=== PATIENT | female | born 1990 | race American Indian/Alaskan Native ===

== ENCOUNTER 2019-06-21 04:03 | Emergency (ER) | payer MEDICAID ==
[2019-06-21 05:37] LABS: Basophils # (Auto) 0.1 K/mm3 (0.0-0.1); Basophils % (Auto) 0.9 % (0.0-1.8); Eosinophils # (Auto) 0.1 K/mm3 (0.0-0.4); Eosinophils % (Auto) 0.7 % (0.0-4.3); Hemoglobin 12.1 gm/dl (10.1-14.3); Lymphocytes # (Auto) 2.6 K/mm3 (1.2-5.4); Lymphocytes % (Auto) 25.3 % (13.4-35.0); Mean Corpuscular HGB Conc 34 % (30-34); Mean Corpuscular Volume 84 fl (79-97); Monocytes # (Auto) 1.2 K/mm3 (0.0-0.8); Monocytes % (Auto) 11.5 % (0.0-7.3); Platelet Count 312 K/mm3 (140-440); Red Blood Count 4.27 M/mm3 (3.65-5.03); Red Cell Distribution Width 13.8 % (13.2-15.2)
[2019-06-21 05:58] LABS: BUN/Creatinine Ratio 7; Blood Urea Nitrogen 5 mg/dL (7-17); Calcium 9.3 mg/dL (8.4-10.2); Hemolysis Index 3
--- NOTE | 2019-06-21 06:50 | Emergency Department Report ---
HPI <GORDONSUZETTE - Last Filed: 06/24/19 21:53> - HPI HPI: 29-year-old -[place] female presents to the emergency department via [facility] after they were allegedly called out for this patient exhibiting some bizarre behavior. Patient appears to have a history of bipolar disorder and allegedly has been off of her Risperdal and lithium for about one year after being . The patient is not forthcoming regarding the events that occurred prior to arrival and the reasons why she was brought in by EMS. She admits that the person who called EMS is someone that she knows and it sounds like she may have come from home. Her main complaints to me at this time are that "I am cold" and "I am tired because I am not getting sleep." There is some triage information that also says that she has not slept the past 2-3 days and that she needs a break from her kids. I asked the patient if she has any auditory or visual hallucinations and she just responds with "tomb." <AMANDA HOANG S - Last Filed: 06/28/19 08:21> - General Chief Complaint: Psych Time Seen by Provider: 06/21/19 06:03 ED Past Medical Hx <SUZETTE GORDON - Last Filed: 06/24/19 21:53> - Past Medical History Previous Medical History?: Yes Hx Psychiatric Treatment: Yes (Bipolar) - Surgical History Past Surgical History?: No - Social History Smoking Status: Unknown if ever smoked Substance Use Type: None <AMANDA HOANG Ashish - Last Filed: 06/28/19 08:21> - Medications Home Medications: Home Medications Medication Instructions Recorded Confirmed Last Taken Type No Known Home Medications [No 06/21/19 06/21/19 Unknown History Reported Home Medications] ED Review of Systems ROS: Stated complaint: MH EVAL Other details as noted in HPI <SUZETTE GORDON - Last Filed: 06/24/19 21:53> ROS: Stated complaint: MH EVAL Other details as noted in HPI Comment: Unobtainable due to pts medical conditions <AMANDA HOANG Ashish - Last Filed: 06/28/19 08:21> Physical Exam - Physical Exam Vital Signs: Vital Signs 06/21/19 06/21/19 06/21/19 04:09 13:00 19:53 Temperature 97.7 F 98.1 F 98.0 F Pulse Rate 69 66 64 Respiratory 20 18 18 Rate Blood Pressure 120/85 122/88 110/65 [Right] O2 Sat by Pulse 100 97 100 Oximetry 06/22/19 06/22/19 06/22/19 02:29 08:32 16:50 Temperature 97.4 F L 97.8 F 97.5 F L Pulse Rate 56 L 68 68 Respiratory 16 18 18 Rate Blood Pressure 111/73 117/85 120/81 [Right] O2 Sat by Pulse 100 100 100 Oximetry 06/22/19 06/23/19 06/23/19 19:30 01:00 07:00 Temperature 97.3 F L 97.8 F 98.0 F Pulse Rate 71 51 L 74 Respiratory 18 18 18 Rate Blood Pressure 115/82 101/63 124/82 [Right] O2 Sat by Pulse 100 100 100 Oximetry 06/23/19 06/23/19 06/24/19 14:00 20:40 01:00 Temperature 98.7 F 97.2 F L 97.8 F Pulse Rate 64 78 86 Respiratory 18 18 16 Rate Blood Pressure 120/70 106/70 99/70 [Right] O2 Sat by Pulse 99 100 100 Oximetry 06/24/19 06/24/19 08:00 14:47 Temperature 97.3 F L 97.8 F Pulse Rate 89 74 Respiratory 18 20 Rate Blood Pressure 115/74 110/74 [Right] O2 Sat by Pulse 99 100 Oximetry <SUZETTE GORDON - Last Filed: 06/24/19 21:53> - Physical Exam Vital Signs: Vital Signs 06/21/19 04:09 Temperature 97.7 F Pulse Rate 69 Respiratory 20 Rate Blood Pressure 120/85 [Right] O2 Sat by Pulse 100 Oximetry Physical Exam: GENERAL: The patient is well-developed well-nourished. HENT: Normocephalic. Atraumatic. Patient has moist mucous membranes. EYES: Extraocular motions are intact. NECK: Supple. Trachea is midline. CHEST/LUNGS: Clear to auscultation. There is no respiratory distress noted. HEART/CARDIOVASCULAR: Regular. There is no tachycardia. There is no murmur. ABDOMEN: Abdomen is soft, nontender. Patient has normal bowel sounds. There is no abdominal distention. SKIN: Skin is warm and dry. NEURO: The patient is awake, alert, and oriented. The patient is cooperative. The patient has no focal neurologic deficits. Normal speech. MUSCULOSKELETAL: There is no tenderness or deformity. There is no evidence of acute injury. <AMANDA HOANG - Last Filed: 06/28/19 08:21> ED Course Vital Signs 06/21/19 06/21/19 06/21/19 04:09 13:00 19:53 Temperature 97.7 F 98.1 F 98.0 F Pulse Rate 69 66 64 Respiratory 20 18 18 Rate Blood Pressure 120/85 122/88 110/65 [Right] O2 Sat by Pulse 100 97 100 Oximetry 06/22/19 06/22/19 06/22/19 02:29 08:32 16:50 Temperature 97.4 F L 97.8 F 97.5 F L Pulse Rate 56 L 68 68 Respiratory 16 18 18 Rate Blood Pressure 111/73 117/85 120/81 [Right] O2 Sat by Pulse 100 100 100 Oximetry 06/22/19 06/23/19 06/23/19 19:30 01:00 07:00 Temperature 97.3 F L 97.8 F 98.0 F Pulse Rate 71 51 L 74 Respiratory 18 18 18 Rate Blood Pressure 115/82 101/63 124/82 [Right] O2 Sat by Pulse 100 100 100 Oximetry 06/23/19 06/23/19 06/24/19 14:00 20:40 01:00 Temperature 98.7 F 97.2 F L 97.8 F Pulse Rate 64 78 86 Respiratory 18 18 16 Rate Blood Pressure 120/70 106/70 99/70 [Right] O2 Sat by Pulse 99 100 100 Oximetry 06/24/19 06/24/19 08:00 14:47 Temperature 97.3 F L 97.8 F Pulse Rate 89 74 Respiratory 18 20 Rate Blood Pressure 115/74 110/74 [Right] O2 Sat by Pulse 99 100 Oximetry - Reevaluation(s) Reevaluation #1: 06/24/19 21:53 Patient has been accepted to [facility] at this time for continued mental health care <SUZETTE GORDON - Last Filed: 06/24/19 21:53> Vital Signs 06/21/19 04:09 Temperature 97.7 F Pulse Rate 69 Respiratory 20 Rate Blood Pressure 120/85 [Right] O2 Sat by Pulse 100 Oximetry <AMANDA HOANG - Last Filed: 06/28/19 08:21> ED Medical Decision Making - Lab Data Result diagrams: 06/21/19 05:22 06/21/19 05:22 <SUZETTE GORDON - Last Filed: 06/24/19 21:53> - Lab Data Result diagrams: 06/21/19 05:22 06/21/19 05:22 - Medical Decision Making This patient presents to the emergency department for a mental health evaluation. For me, she is not very forthcoming regarding the prehospital history or regarding her current state of mind. However, the patient was seen by the psych museum or zoo director, Shiva, and began telling him about her hallucinations and what appears to be paranoia and delusions. For this reason, the patient does appear to be having some acute psychosis and meets criteria to be made a 1013. The labs have been unremarkable. Vital signs stable throughout her ED course. Patient is medically cleared for psychiatric placement. - Differential Diagnosis bipolar disorder, schizophrenia, schizoaffective <AMANDA HOANG - Last Filed: 06/28/19 08:21> Critical care attestation.: If time is entered above; I have spent that time in minutes in the direct care of this critically ill patient, excluding procedure time. <SUZETTE GORDON - Last Filed: 06/24/19 21:53> Critical Care Time: No Critical care attestation.: If time is entered above; I have spent that time in minutes in the direct care of this critically ill patient, excluding procedure time. <AMANDA HOANG - Last Filed: 06/28/19 08:21> ED Disposition Is pt being admited?: No Does the pt Need Aspirin: No <SUZETTE GORDON - Last Filed: 06/24/19 21:53> Is pt being admited?: No Time of Disposition: 14:51 <AMANDA HOANG - Last Filed: 06/28/19 08:21> Clinical Impression: Acute psychosis, Paranoia, Delusions Disposition: DC/TX-[facility] PSY HOSP/PSY UNIT Condition: Stable Referrals: PRIMARY CARE, [Primary Care Provider] - 3-5 Days
[2019-06-21 11:44] LABS: Bacteria,Urine 1+ /HPF (Negative); Bilirubin,Urine NEG (Negative); Blood,Urine MOD (Negative); Color,Urine Amber (Yellow); Mucus,Urine 1+ /HPF
[2019-06-21 11:53] LABS: Amphetamine Screen,Urine PRESUMPTIVE NEGATIVE; Benzodiazepines Screen,Urine PRESUMPTIVE NEGATIVE; Cocaine Screen,Urine PRESUMPTIVE NEGATIVE; Methadone Screen,Urine PRESUMPTIVE NEGATIVE; Opiate Screen,Urine PRESUMPTIVE NEGATIVE
[2019-06-21 12:12] LABS: Cannabinoid Screen,Urine PRESUMPTIVE POSITIVE
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
[2019-06-21] MEDS: LITHIUM CARBONATE 300 MG CAP PO SCH ×2 (14:00→22:29)
[2019-06-21] MEDS: risperiDONE 1 MG TAB PO SCH (22:29)
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
[2019-06-22] MEDS: LITHIUM CARBONATE 300 MG CAP PO SCH ×2 (11:00→21:52)
[2019-06-22] MEDS: risperiDONE 1 MG TAB PO SCH (21:52)
[2019-06-23] MEDS: LITHIUM CARBONATE 300 MG CAP PO SCH ×2 (11:00→22:15)
--- NOTE | 2019-06-23 12:11 | Emergency Department Report ---
ED General Adult HPI - General Chief complaint: Psych Stated complaint: MH EVAL Time Seen by Provider: 06/23/19 12:04 Source: patient, EMS Mode of arrival: Stretcher Limitations: No Limitations - History of Present Illness Initial comments: "It's about Noman" - History of Present Psychiatric Illness 29 y.o. AA female who presented to the ER for bizarre behavior. Today Patient shows no significant changes. We tried to obtain collateral information from her mother Marli Desouza phone [phone], but were unable to make contact . Patient wanted us to make contact with her spiritual family Noman Tineo at [phone]. She wrote a letter requesting we discharge her because she was better now and taking her meds. She remains hyper zoroastrian She is yet to divulge her real name or significant details of existance. She denies SI/HI's and AVH's. She denies a poor appetite. She denies recreational drug use, but she was positive for marijuana. She denies alcohol consumption (etoh). At this time, the patient's legal name is unknown. Allergies Allergy/AdvReac Type Severity Reaction Status Date / Time No Known Allergies Allergy Unverified 06/21/19 04:09 - Past Medical History Past Medical History: other ( x 3) Past Surgical History: No surgical history - past Psychiatric treatment and history psychiatric treatment history: Hx of Bipolar DO. Denies a fam psy hx. - Social History Social history: lives with family - Vital signs Last Vital Signs Temp 97.7 F 06/21/19 04:09 Pulse 69 06/21/19 04:09 Resp 20 06/21/19 04:09 BP 120/85 06/21/19 04:09 Pulse Ox 100 06/21/19 04:09 - Exam Narrative exam: MSE: Appearance: bed sheet wrapped around the patient's head Behavior: regular eye contact Speech: regular rate and tone Mood: mild anxiety Affect: congruent to mood Thought Process: circumstantial Thought Content: denies SI/HI's and VH's, delusional, hyper zoroastrian Motor Activity: sitting up in bed Cognition: A/O x 3 Insight: variable Judgment: poor Results Result Diagrams: 06/21/19 05:22 06/21/19 05:22 Abnormal lab results 06/21/19 06/21/19 06/21/19 Range/Units 05:22 05:22 05:22 [place] % (Auto) (0.0-7.3) % [place] # (0.0-0.8) K/mm3 BUN 5 L (7-17) mg/dL Salicylates < 0.3 L (2.8-20.0) mg/dL Acetaminophen < 5.0 L (10.0-30.0) ug/mL 06/21/19 Range/Units 05:22 [place] % (Auto) 11.5 H (0.0-7.3) % [place] # 1.2 H (0.0-0.8) K/mm3 BUN (7-17) mg/dL Salicylates (2.8-20.0) mg/dL Acetaminophen (10.0-30.0) ug/mL All other labs normal. Assessment and plan: Impression: Bipolar DO with psychosis. Cannabis Use DO. The patient is manic. Today the patient was cooperative during the assessment. DDx: SCAD, Schizophrenia Recommendation/Plan: Continue 1013 and start Risperdal 1 mg PO HS for psychosis/mood and [place] 300 mg PO BID for mood. improving Dispo: The patient was referred to inpatient psy services Staffed with Dr Ashish Webb. Severity scale (0 -10): 0 - Related Data Home Medications Medication Instructions Recorded Confirmed Last Taken No Known Home Medications [No 06/21/19 06/21/19 Unknown Reported Home Medications] Allergies Allergy/AdvReac Type Severity Reaction Status Date / Time No Known Allergies Allergy Unverified 06/21/19 04:09 ED Review of Systems ROS: Stated complaint: MH EVAL Other details as noted in HPI Comment: All other systems reviewed and negative ED Past Medical Hx - Past Medical History Previous Medical History?: Yes Hx Psychiatric Treatment: Yes (Bipolar) - Surgical History Past Surgical History?: No - Social History Smoking Status: Unknown if ever smoked Substance Use Type: None - Medications Home Medications: Home Medications Medication Instructions Recorded Confirmed Last Taken Type No Known Home Medications [No 06/21/19 06/21/19 Unknown History Reported Home Medications] ED Physical Exam - General Limitations: No Limitations General appearance: alert, in no apparent distress - Head Head exam: Present: atraumatic, normocephalic - Eye Eye exam: Present: normal appearance - Neck Neck exam: Present: normal inspection - Rectal Rectal exam: Present: deferred - Neurological Exam Neurological exam: Present: alert - Skin Skin exam: Present: warm, dry ED Course Vital Signs 06/21/19 06/21/19 06/21/19 04:09 13:00 19:53 Temperature 97.7 F 98.1 F 98.0 F Pulse Rate 69 66 64 Respiratory 20 18 18 Rate Blood Pressure 120/85 122/88 110/65 [Right] O2 Sat by Pulse 100 97 100 Oximetry 06/22/19 06/22/19 06/22/19 02:29 08:32 16:50 Temperature 97.4 F L 97.8 F 97.5 F L Pulse Rate 56 L 68 68 Respiratory 16 18 18 Rate Blood Pressure 111/73 117/85 120/81 [Right] O2 Sat by Pulse 100 100 100 Oximetry 06/22/19 06/23/19 06/23/19 19:30 01:00 07:00 Temperature 97.3 F L 97.8 F 98.0 F Pulse Rate 71 51 L 74 Respiratory 18 18 18 Rate Blood Pressure 115/82 101/63 124/82 [Right] O2 Sat by Pulse 100 100 100 Oximetry ED Medical Decision Making - Lab Data Result diagrams: 06/21/19 05:22 06/21/19 05:22 Critical Care Time: No (mental health evaluation) Critical care attestation.: If time is entered above; I have spent that time in minutes in the direct care of this critically ill patient, excluding procedure time. ED Disposition Clinical Impression: Acute psychosis, Paranoia, Delusions Condition: Stable Referrals: PRIMARY CARE, [Primary Care Provider] - 3-5 Days Severity scale (0 -10): 0 - Related Data Home Medications Medication Instructions Recorded Confirmed Last Taken No Known Home Medications [No 06/21/19 06/21/19 Unknown Reported Home Medications] Allergies Allergy/AdvReac Type Severity Reaction Status Date / Time No Known Allergies Allergy Unverified 06/21/19 04:09 ED Review of Systems ROS: Stated complaint: MH EVAL Other details as noted in HPI ED Past Medical Hx - Past Medical History Previous Medical History?: Yes Hx Psychiatric Treatment: Yes (Bipolar) - Surgical History Past Surgical History?: No - Social History Smoking Status: Unknown if ever smoked Substance Use Type: None - Medications Home Medications: Home Medications Medication Instructions Recorded Confirmed Last Taken Type No Known Home Medications [No 06/21/19 06/21/19 Unknown History Reported Home Medications] ED Physical Exam - General Limitations: No Limitations General appearance: alert, in no apparent distress ED Course Vital Signs 06/21/19 06/21/19 06/21/19 04:09 13:00 19:53 Temperature 97.7 F 98.1 F 98.0 F Pulse Rate 69 66 64 Respiratory 20 18 18 Rate Blood Pressure 120/85 122/88 110/65 [Right] O2 Sat by Pulse 100 97 100 Oximetry 06/22/19 06/22/19 06/22/19 02:29 08:32 16:50 Temperature 97.4 F L 97.8 F 97.5 F L Pulse Rate 56 L 68 68 Respiratory 16 18 18 Rate Blood Pressure 111/73 117/85 120/81 [Right] O2 Sat by Pulse 100 100 100 Oximetry 06/22/19 06/23/19 06/23/19 19:30 01:00 07:00 Temperature 97.3 F L 97.8 F 98.0 F Pulse Rate 71 51 L 74 Respiratory 18 18 18 Rate Blood Pressure 115/82 101/63 124/82 [Right] O2 Sat by Pulse 100 100 100 Oximetry 06/23/19 06/23/19 06/24/19 14:00 20:40 01:00 Temperature 98.7 F 97.2 F L 97.8 F Pulse Rate 64 78 86 Respiratory 18 18 16 Rate Blood Pressure 120/70 106/70 99/70 [Right] O2 Sat by Pulse 99 100 100 Oximetry 06/24/19 06/24/19 06/24/19 08:00 14:47 22:40 Temperature 97.3 F L 97.8 F 98.3 F Pulse Rate 89 74 83 Respiratory 18 20 18 Rate Blood Pressure 115/74 110/74 120/75 [Right] O2 Sat by Pulse 99 100 99 Oximetry 06/25/19 06/25/19 00:00 07:00 Temperature 97.9 F 97.5 F L Pulse Rate 64 78 Respiratory 18 16 Rate Blood Pressure 101/64 104/76 [Right] O2 Sat by Pulse 100 99 Oximetry ED Medical Decision Making - Lab Data Result diagrams: 06/21/19 05:22 06/21/19 05:22 Critical Care Time: No (mental health eval) Critical care attestation.: If time is entered above; I have spent that time in minutes in the direct care of this critically ill patient, excluding procedure time. ED Disposition Clinical Impression: Paranoia, Delusions Schizo-affective psychosis Qualifiers: Schizoaffective disorder type: unspecified Qualified Code(s): F25.9 - Schizoaffective disorder, unspecified Disposition: MED SCREENING EXAM-LEFT Condition: Stable Referrals: PRIMARY CARE, [Primary Care Provider] - 3-5 Days
[2019-06-23] MEDS: risperiDONE 1 MG TAB PO SCH (22:15)
--- NOTE | 2019-06-24 09:57 | Progress Note ---
Subjective - Reason for Consult Consult date: 06/24/19 Reason for consult: Psychiatry Follow-up - Chief Complaint Chief complaint: "I'm just here" 29 y.o. AA female who presented to the ER for bizarre behavior. Today the patient was calm during the assessment. She continue to think women and children is being abducting at her place of resident when asked. She did state that she slept "okay" last night. Prior to my arrival to her room, the patient was seen pacing. She is adamant that "Yahweh" will make things better for her. She denies SI/HI;s and AVH's. No indications of side effects of her medications. Mental Status Exam - Vital signs Last Vital Signs Temp 97.8 F 06/24/19 01:00 Pulse 86 06/24/19 01:00 Resp 16 06/24/19 01:00 BP 99/70 06/24/19 01:00 Pulse Ox 100 06/24/19 01:00 - Exam Narrative exam: MSE: Appearance: bed sheet wrapped around the patient's head Behavior: regular eye contact Speech: regular rate and tone Mood: "okay" Affect: congruent to mood Thought Process: circumstantial Thought Content: denies SI/HI's and VH's, delusional, hyper congregational Motor Activity: sitting up in bed Cognition: A/O x 3 Insight: poor Judgment: poor Assessment and Plan Impression: Bipolar DO with psychosis. Cannabis Use DO. The patient is manic. Today the patient was cooperative during the assessment. DDx: SCAD, Schizophrenia Recommendation/Plan: Continue 1013 and [place] 300 mg PO BID for mood. Increase Risperdal to 2 mg PO HS for psychosis/mood. Discussed possible metabolic side effects of Risperdal with the patient, she verbalized understanding. Dispo: The patient was accepted at [facility] for inpatient psy services. Will staff with Dr Ashish Webb.
[2019-06-24] MEDS: LITHIUM CARBONATE 300 MG CAP PO SCH ×2 (11:31→22:21)
[2019-06-24] MEDS ORDERED: risperiDONE 1 MG TAB PO SCH (22:00)
[2019-06-25 07:59] VITALS: BP 104/76
--- NOTE | 2019-06-25 09:43 | Progress Note ---
Subjective - Reason for Consult Consult date: 06/25/19 Reason for consult: Psychiatry Follow-up - Chief Complaint Chief complaint: "I'm leaving soon"" 29 y.o. AA female who presented to the ER for bizarre behavior. Today the patient was calm and cooperative during the assessment. She is adamant that her name is "Noman" and "Noman" will make things better in her life. The patient's legal name is still unknown. She denies SI/HI's and AVH's. She denies any side effects from her medication. Mental Status Exam - Vital signs Last Vital Signs Temp 97.5 F L 06/25/19 07:00 Pulse 78 06/25/19 07:00 Resp 16 06/25/19 07:00 BP 104/76 06/25/19 07:00 Pulse Ox 99 06/25/19 07:00 - Exam Narrative exam: MSE: Appearance: bed sheet wrapped around the patient's head Behavior: regular eye contact Speech: regular rate and tone Mood: "okay" Affect: congruent to mood Thought Process: circumstantial Thought Content: denies SI/HI's and VH's, delusional Motor Activity: sitting up in bed Cognition: A/O x 3 Insight: variable Judgment: variable Assessment and Plan Impression: Bipolar DO with psychosis. Cannabis Use DO. The patient is manic. Today the patient was cooperative during the assessment. DDx: SCAD, Schizophrenia Recommendation/Plan: Continue 1013 and [place] 300 mg PO BID for mood. Increase Risperdal to 2 mg PO HS for psychosis/mood. Discussed possible metabolic side effects of Risperdal with the patient, she verbalized understanding. Dispo: The patient was accepted at [facility] for inpatient psy services. Staffed with Dr Ashish Webb.
== END 2019-06-25 11:36 ==
LOC: ED 04:03 → EEVIPCON 04:03 → ED 06-25 11:36
DX: F23 Brief psychotic disorder (principal); F22 Delusional disorders; F31.9 Bipolar disorder, unspecified
CPT/HCPCS: 36415; 80048; 80178; 80307; 80320; 81001; 84703; 85025; G0480

== ENCOUNTER 2022-06-01 13:21 | Emergency (ER) | payer MEDICAID ==
[2022-06-01 13:27] VITALS: BP 120/59
[2022-06-01 17:11] LABS: Alanine Aminotransferase 38 units/L (7-56); Blood Urea Nitrogen 7 mg/dL (7-17); Calcium 9.4 mg/dL (8.4-10.2); Hemolysis Index 1
[2022-06-01 17:21] LABS: BUN/Creatinine Ratio 12
[2022-06-01 17:23] LABS: Basophils # (Auto) 0.1 K/mm3 (0.0-0.1); Basophils % (Auto) 0.6 % (0.0-1.8); Eosinophils # (Auto) 0.1 K/mm3 (0.0-0.4); Eosinophils % (Auto) 1.2 % (0.0-4.3); Hematocrit 39.4 % (30.3-42.9); Hemoglobin 12.9 gm/dl (10.1-14.3); Lymphocytes # (Auto) 3.5 K/mm3 (1.2-5.4); Lymphocytes % (Auto) 30.3 % (13.4-35.0); Mean Corpuscular HGB Conc 33 % (30-34); Mean Corpuscular Volume 89 fl (79-97); Monocytes # (Auto) 1.1 K/mm3 (0.0-0.8); Monocytes % (Auto) 9.6 % (0.0-7.3); Platelet Count 342 K/mm3 (140-440); Red Blood Count 4.44 M/mm3 (3.65-5.03); Red Cell Distribution Width 13.1 % (13.2-15.2)
[2022-06-01 19:00] LABS: Amphetamine Screen,Urine Negative; Benzodiazepines Screen,Urine Negative; Cannabinoid Screen,Urine Negative; Cocaine Screen,Urine Negative; Methadone Screen,Urine Negative; Opiate Screen,Urine Negative
[2022-06-01 19:27] LABS: Mucus,Urine FEW /HPF
[2022-06-01 19:39] LABS: Color,Urine Colorless (Yellow)
[2022-06-01 19:41] LABS: WBC,Urine < 1.0 /HPF (0.0-6.0)
--- NOTE | 2022-06-01 20:48 | Emergency Department Report ---
HPI - General Chief Complaint: Psych PUI?: No Time Seen by Provider: 06/01/22 14:47 - HPI HPI: 32-year-old female with a history of bipolar disorder, self reportedly noncompliant with medication, brought in for evaluation by mental health. Patient states "my sister told me I ought to get checked out but I think I am fine." Patient cannot tell this provider what medication she is on psychiatrically. She denies any physical complaints. When probed further the patient reports she has been "seeing demons around me all the time" but she cannot verify how long she has been perceiving seeing them. She denies any auditory visual hallucinations. Pain currently 0-10 ED Past Medical Hx - Past Medical History Previous Medical History?: No Hx Psychiatric Treatment: Yes (Bipolar) - Social History Smoking Status: Unknown if ever smoked Substance Use Type: None - Medications Home Medications: Home Medications Medication Instructions Recorded Confirmed Last Taken Type No Known Home Medications [No 06/21/19 06/21/19 Unknown History Reported Home Medications] ED Review of Systems ROS: Stated complaint: MENTAL HEALTH EVAL Other details as noted in HPI Comment: All other systems reviewed and negative Physical Exam - Physical Exam Vital Signs: Vital Signs 06/01/22 13:26 Temperature 98.2 F Pulse Rate 78 Respiratory 14 Rate Blood Pressure 120/59 [Left] O2 Sat by Pulse 97 Oximetry General: Gen: pt is well appearing, no acute distress HEENT: Normocephalic atraumatic pupils equally round and reactive to light extraocular muscles intact sclera anicteric Neck: Full range of motion, no midline spinal tenderness palpation, no JVD, no carotid bruits, no nuchal rigidity CVS: S1-S2 regular rate and rhythm with no gallops rubs or murmurs, chest wall nontender Pulmonary: Clear to auscultation bilaterally, no wheezes rales or rhonchi Abdomen: Soft nondistended nontender no guarding or rebound tenderness, no palpable deformities or step-offs, normal active bowel sounds, no hepatosplenomegaly, no pulsatile masses : Deferred Extremities: No cyanosis no clubbing no edema, intact distal peripheral pulses, Integumentary: Skin normal, no petechia no purpura no abscess no lacerations no evidence of trauma no evidence of infection Neuro: Patient is awake alert and oriented to person place time situation, mentating well, cranial nerves II through XII intact, no focal neurodeficits, sensation grossly tact Psych: Calm cooperative, flat affect, patient appears intermittently slow to respond ED Course Vital Signs 06/01/22 13:26 Temperature 98.2 F Pulse Rate 78 Respiratory 14 Rate Blood Pressure 120/59 [Left] O2 Sat by Pulse 97 Oximetry ED Medical Decision Making - Lab Data Result diagrams: 06/01/22 16:11 06/01/22 16:11 - Medical Decision Making 32-year-old female with history of bipolar disorder, noncompliant with medication, brought in for mental health evaluation. Vital signs stable. Labs grossly unremarkable. As the timing of the dictation of this note, urine hCG remains pending. Patient is otherwise deemed medically cleared. 1013 form sign ed. Mental health consult placed. Patient will await formal evaluation by mental health and subsequent disposition by that service. Critical care attestation.: If time is entered above; I have spent that time in minutes in the direct care of this critically ill patient, excluding procedure time. ED Disposition Clinical Impression: Bipolar disorder, Visual hallucinations Disposition: 30 STILL A PATIENT Is pt being admited?: No Does the pt Need Aspirin: No Condition: Stable Referrals: PRIMARY CARE, [Primary Care Provider] - 3-5 Days
[2022-06-01 20:57] LABS: HCG Qualitative,Urine Negative (Negative)
== END 2022-06-02 05:40 | disposition still patient (30) ==
LOC: EEVIPCON 13:21 → ED 13:21
DX: F31.9 Bipolar disorder, unspecified (principal); R44.1 Visual hallucinations; Z79.899 Other long term (current) drug therapy
CPT/HCPCS: 36415; 80053; 80307; 80320; 81001; 81025; 85025; 99285; G0480